=== PATIENT | male | born 1975 | race Caucasian/White ===

== ENCOUNTER 2022-04-20 23:46 | Emergency (ER) | payer MEDICAID, OTHER ==
[~2022-04-20] VITALS: Ht 190.5 cm; Wt 161.8 kg
[~2022-04-20 23:46] MED LIST: HYDR-2551; LISI-711
[2022-04-21] MEDS ORDERED: TETANUS-DIPTH-ACEL PERTUSSIS 0.5ML SYR Tdap IM ONE (07:00)
[2022-04-21] MEDS: LIDOCAINE 1% HCL (LOCAL ANESTH.) INJ 20ML MDV IJ ONE ×2 (07:13→07:17)
[2022-04-21] MEDS ORDERED: CEPH-510 PO (07:46)
[2022-04-21 08:08] VITALS: BP 148/107
== END 2022-04-21 08:12 | disposition home or self-care (01) ==
LOC: ER 23:52
DX: S61.213A Laceration without foreign body of left middle finger without damage to nail, initial encounter (principal); I10 Essential (primary) hypertension; Z79.899 Other long term (current) drug therapy; W26.8XXA Contact with other sharp object(s), not elsewhere classified, initial encounter; Y93.89 Activity, other specified; Y92.89 Other specified places as the place of occurrence of the external cause; Y99.8 Other external cause status
CPT/HCPCS: 12002; 73130; 90471; 90715; 99283; J2001